=== PATIENT | female | born 1985 | race African-American/Black ===

== ENCOUNTER 2024-08-19 17:27 | Emergency (ER) | payer BC, MEDICAID ==
[~2024-08-19] VITALS: Ht 162.6 cm; Wt 77.0 kg
[2024-08-19 17:43] VITALS: BP 146/74; PULSE 94; RESP 16; TEMP 98.6; O2SAT 100
[2024-08-19 22:54] LABS: CHLORIDE 106 mEq/L (98-107); POTASSIUM 3.9 mEq/L (3.5-5.1); SODIUM 139 mEq/L (136-145)
[2024-08-19 22:55] LABS: CALCIUM 9.6 mg/dL (8.7-10.4); CARBON DIOXIDE 25 mEq/L (21-32)
[2024-08-19 23:00] LABS: CREATININE 0.8 mg/dL (0.6-1.0); GLUCOSE 88 mg/dL (70-105); UREA NITROGEN BLOOD 20 mg/dL (9-23)
[2024-08-19 23:02] LABS: BASOPHILS % 0.5 % (0.0-2.0); EOSINOPHILS % 1.5 % (0.0-5.0); HEMATOCRIT. 27.6 % (36.0-48.0); HEMOGLOBIN. 8.4 g/dL (12.0-16.0); LYMPHOCYTES % 28.2 % (20.0-50.0); MEAN CORPUSCULAR HEMOGLOBIN 19.2 pg (28.0-32.0); MEAN CORPUSCULAR HGB CONC 30.3 g/dL (31.0-37.0); MEAN CORPUSCULAR VOLUME 63.3 fL (81.0-99.0); MEAN PLATELET VOLUME 6.3 fl (7.4-10.4); MONOCYTES % 7.4 % (2.0-8.0); NEUTROPHILS % 62.4 % (40.0-76.0); PLATELET 464 x1000/uL (130-400); RED BLOOD CELL COUNT 4.36 mill/uL (4.2-5.4); RED CELL DISTRIBUTION WIDTH 18.7 % (11.6-14.6); WHITE BLOOD COUNT 10.4 x1000/uL (4.5-11.0)
[2024-08-19 23:03] LABS: TROPONIN I HIGH SENSITIVITY 16 ng/L (3.0-34)
[2024-08-19 23:04] LABS: ADD RBC MORPHOLOGY YES; DIFFERENTIAL COMMENT 1
[2024-08-19 23:06] LABS: T4 FREE 1.26 ng/dL (0.89-1.76)
[2024-08-19 23:07] LABS: THYROID STIMULATING HORMONE 2.64 uIU/mL (0.55-4.78)
[2024-08-19 23:10] LABS: HCG SCREEN NEGATIVE
[2024-08-19] MEDS ORDERED: FERR324T4 MT (23:27)
[2024-08-19 23:28] LABS: ANISOCYTOSIS 1+; HYPOCHROMASIA 2+; MICROCYTOSIS 3+; PLATELET ESTIMATE INCREASED
== END 2024-08-19 23:34 | disposition home or self-care (01) ==
LOC: ER 17:27
DX: R00.0 Tachycardia, unspecified (principal); R42 Dizziness and giddiness; Z98.890 Other specified postprocedural states
CPT/HCPCS: 36415; 71045; 80048; 84439; 84443; 84484; 84703; 85025; 93005; 99285